=== PATIENT | female | born 1990 | race Hispanic/Latino ===

== ENCOUNTER 2022-12-10 15:31 | Day surgery (SDC) | payer MEDICAID, OTHER ==
[2022-12-10 16:03] VITALS: BMI 32.5
[2022-12-10 17:04] LABS: Fetal Membranes Rupture No Membranes Rupture (No Rupture)
[2022-12-10] MEDS ORDERED: hydrALAZINE 20 MG/ML VIAL SLOW IVP PRN (17:38)
== END 2022-12-10 17:45 | disposition home health service (06) ==
LOC: CSHLD/OP 15:31
PROVIDERS: ATTEND Family Medicine
DX: O23.593 Infection of other part of genital tract in pregnancy, third trimester (principal); N89.8 Other specified noninflammatory disorders of vagina; Z79.899 Other long term (current) drug therapy; Z3A.37 37 weeks gestation of pregnancy
CPT/HCPCS: 84112; 87480; 87510; 87660; 99285

== ENCOUNTER 2022-12-23 04:39 | Inpatient (IN) | payer OTHER ==
[2022-12-23 05:15] VITALS: BMI 33.1
[2022-12-23 05:35] LABS: Fetal Membranes Rupture RUPTURE DETECTED (No Rupture)
[2022-12-23] MEDS ORDERED: Ondansetron PF 4 MG/2 ML Vial IVP PRN ×2 (06:15→11:02)
[2022-12-23] MEDS ORDERED: Promethazine HCl 25 MG/ML VIAL IM PRN ×3 (06:15→16:51)
[2022-12-23] MEDS ORDERED: Acetaminophen 500 MG TAB PO PRN (06:15)
[2022-12-23] MEDS ORDERED: Fleet Enema 133 ML BOT PR ONE (06:15)
[2022-12-23] MEDS ORDERED: Butorphanol Tartrate 1 MG/ML VIAL SLOW IVP PRN (06:15)
[2022-12-23] MEDS ORDERED: hydrALAZINE 20 MG/ML VIAL SLOW IVP PRN ×2 (06:15→16:51)
[2022-12-23] MEDS ORDERED: Zolpidem Tartrate 5 MG TAB PO PRN (06:15)
[2022-12-23] MEDS ORDERED: Lactated Ringer's 1,000 ML IV SCH (06:15)
[2022-12-23] MEDS ORDERED: NS w/ Oxytocin 30 units 500 ML IVPB SCH (06:30)
[2022-12-23] MEDS ORDERED: HYDROcodone/Acetaminophen 5/325 mg Tablet PO PRN ×3 (06:30→16:51)
[2022-12-23] MEDS ORDERED: NS w/ Oxytocin 30 units 500 ML IV SCH (06:30)
[2022-12-23] MEDS ORDERED: Carboprost 250 MCG/ML AMP IM PRN (06:30)
[2022-12-23] MEDS ORDERED: Lidocaine 1% (PF) 30 ML VIAL SC PRN (06:30)
[2022-12-23] MEDS ORDERED: Methylergonovine 0.2 MG/ML VIAL IM PRN (06:30)
[2022-12-23] MEDS ORDERED: Misoprostol 200 MCG TAB RC PRN (06:30)
[2022-12-23] MEDS ORDERED: Ibuprofen 800 MG TAB PO PRN (06:30)
[2022-12-23] MEDS ORDERED: Diphenoxylate HCl/Atropine Tablet PO PRN ×2 (06:30)
[2022-12-23 07:38] LABS: Mean Corpuscular HGB CONC 34.6 g/dL (32.0-36.0); Mean Corpuscular Hemoglobin 31.2 pg (27.0-33.0); Mean Corpuscular Volume 90.2 fl (81.6-98.3); Mean Platelet Volume 10.1 fl (7.4-10.4); Platelet Count 285 10x3/uL (150-450); RBC Distribution Width 13.8 % (11.5-14.5); Red Blood Cell (RBC) Count 4.17 10x6/uL (3.90-5.03); White Blood Cell (WBC) Count 11.8 10x3/uL (3.5-10.5)
[2022-12-23 08:13] LABS: HBSAg Index 0.17 S/CO (0-0.99); Hep B Surf Ag - L&D Non-Reactive S/CO (NonReactive)
[2022-12-23 08:15] LABS: Syphilis Antibody Nonreactive (Nonreactive); Syphilis Antibody Index 0.03 S/CO (<1.00 Non-Reactive)
[2022-12-23] MEDS ORDERED: Docusate 100 MG CAP PO SCH (09:00)
[2022-12-23] MEDS ORDERED: Fentanyl 2 mcg/Bup 0.1% Cadd 100 ML ONE (10:31)
[2022-12-23] MEDS ORDERED: diphenhydrAMINE 50 MG/ML VIAL IVP PRN (11:02)
[2022-12-23] MEDS ORDERED: Naloxone HCl 0.4 mg/ml Vial IVP PRN ×2 (11:02)
[2022-12-23] MEDS ORDERED: Moisturizing Cream (Eucerin) 113 GM JAR TOP PRN (11:02)
[2022-12-23] MEDS ORDERED: Lactated Ringer's 500 ML IV PRN (11:02)
[2022-12-23] MEDS ORDERED: ePHEDrine Sulfate 50 MG/10 ML VIAL SLOW IVP PRN (11:02)
[2022-12-23] MEDS ORDERED: Acetaminophen 325 MG TAB PO PRN (11:02)
[2022-12-23] MEDS ORDERED: Fentanyl 2 mcg/Bupivacaine 0.1% Cassette 100 ML EPIDURAL SCH (11:15)
[2022-12-23] MEDS ORDERED: Communication Order-Pharmacy FS SCH (11:15)
[2022-12-23] MEDS ORDERED: Boostrix 0.5 ML (Tdap) VIAL (>/=7 yrs of age) IM ONE (16:51)
[2022-12-23] MEDS ORDERED: Benzocaine-Menthol 82.5 ML CAN TOP PRN (16:51)
[2022-12-23] MEDS ORDERED: Lanolin Ointment 7 GM TUBE TOP PRN (16:51)
[2022-12-23] MEDS ORDERED: Milk Of Magnesia 30 ML UDCUP PO PRN (16:51)
[2022-12-23] MEDS ORDERED: diphenhydrAMINE 25 MG CAP PO PRN (16:51)
[2022-12-23] MEDS ORDERED: Bisacodyl 10 MG SUPP PR PRN (16:51)
[2022-12-23] MEDS: Ferrous Sulfate 325 MG TAB PO SCH (17:41)
[2022-12-23] MEDS: Docusate 100 MG CAP PO SCH (22:20)
[2022-12-23] MEDS: Ibuprofen 800 MG TAB PO SCH (22:21)
[2022-12-24] MEDS: Ibuprofen 800 MG TAB PO SCH ×2 (06:15→13:50)
[2022-12-24] MEDS: Docusate 100 MG CAP PO SCH (08:56)
[2022-12-24] MEDS: Ferrous Sulfate 325 MG TAB PO SCH (08:57)
[2022-12-24] MEDS ORDERED: Prenatal Vitamin 1 TAB PO SCH (09:00)
[2022-12-24 11:26] VITALS: BP 102/66; TEMP 97.9
== END 2022-12-24 17:00 | disposition home or self-care (01) | DRG 807 ==
LOC: CSHLD/OP 04:39 → CSHLD 08:43 → CSHPED 17:26
PROVIDERS: ADMIT Family Medicine; ATTEND Family Medicine
PROC: 10E0XZZ Delivery of Products of Conception, External Approach (ICD-10-PCS; principal; 2022-12-24)
PROC: 0KQM0ZZ Repair Perineum Muscle, Open Approach (ICD-10-PCS; 2022-12-24)
DX: O77.0 Labor and delivery complicated by meconium in amniotic fluid (principal); Z37.0 Single live birth; Z3A.39 39 weeks gestation of pregnancy; Z79.899 Other long term (current) drug therapy; O70.1 Second degree perineal laceration during delivery
CPT/HCPCS: 36415; 51702; 84112; 85027; 86780; 86850; 86900; 86901; 87340; 99285; J2001; J2590